=== PATIENT | female | born 1955 | race Caucasian/White ===

== ENCOUNTER 2022-11-26 13:10 | Emergency (ER) | payer OTHER, BC ==
[2022-11-26] MEDS ORDERED: FAMOTIDINE 20 MG/50 ML IVPB 20 MG/50 ML MG IVPB ONE ×2 (13:27→13:31)
[2022-11-26] MEDS ORDERED: ONDANSETRON 4 MG/2 ML VIAL IVPUSH ONE (13:27)
[2022-11-26] MEDS ORDERED: MAG HYDROX/AL HYDROX/SIMETH 30 ML UNIT-DOSE CUP PO ONE (13:27)
[2022-11-26] MEDS ORDERED: SODIUM CHLORIDE 0.9% 500 ML INFUS.BAG IV ONE (13:27)
[2022-11-26] MEDS ORDERED: ACETAMINOPHEN 1000 MG/100 ML BAG IVPB ONE (13:27)
[2022-11-26] MEDS ORDERED: ONDANSETRON 4 MG/2 ML VIAL ONE (13:31)
[2022-11-26] MEDS ORDERED: ACETAMINOPHEN INJECTION 100 ML IVPB ONE (13:32)
[2022-11-26] MEDS ORDERED: MAG HYDROX/AL HYDROX/SIMETH 30 ML UNIT-DOSE CUP ONE (13:32)
[2022-11-26 13:34] VITALS: BP 122/49; PULSE 63; RESP 16; TEMP 98.6; BMI 21.7
[2022-11-26 14:14] LABS: HEMATOCRIT 39.6 % (32.4-45.2); HEMOGLOBIN 13.2 G/dL (10.7-15.3); MCH 34.4 pg (25.7-33.7); MCHC 33.4 g/dl (32.0-36.0); MEAN CELL VOLUME 102.9 fl (80-96); MEAN PLT VOLUME 8.8 fl (7.5-11.1); PLATELET COUNT 184.8 10^3/uL (134-434); RBC 3.85 10^6/uL (3.60-5.2); WHITE BLOOD COUNT 4.8 10^3/uL (4.0-10.8)
[2022-11-26 14:15] LABS: ALBUMIN 4.3 g/dl (3.4-5.0); BLOOD UREA NITROGEN 11.8 mg/dl (7-18); CALCIUM 9.5 mg/dl (8.5-10.1); CREATININE 0.6 mg/dl (0.6-1.3); POTASSIUM 3.9 mmol/L (3.5-5.1); SGOT/AST 22.5 U/L (15-37); SGPT/ALT 20.5 U/L (7-52); TOT PROT 6.3 g/dl (6.4-8.2)
[2022-11-26 14:17] LABS: PLATELET ESTIMATE ADEQUATE
[2022-11-26 14:19] LABS: EPITHELIAL CELLS MANY /hpf
[2022-11-26 16:25] LABS: BILIRUBIN,TOTAL 0.3 mg/dL (0.2-1)
== END 2022-11-26 15:10 | disposition home or self-care (01) ==
LOC: FER 13:10
PROC: 3E033GC Introduction of Other Therapeutic Substance into Peripheral Vein, Percutaneous Approach (ICD-10-PCS; principal; 2022-11-26)
PROC: 3E033NZ Introduction of Analgesics, Hypnotics, Sedatives into Peripheral Vein, Percutaneous Approach (ICD-10-PCS; 2022-11-26)
PROC: 3E033GC Introduction of Other Therapeutic Substance into Peripheral Vein, Percutaneous Approach (ICD-10-PCS; 2022-11-26)
DX: R10.11 Right upper quadrant pain (principal); R11.0 Nausea
CPT/HCPCS: 36415; 76705-TC; 80053; 81003; 81015; 82550; 83690; 84484; 85027; 87086; 93005; 99285-25